=== PATIENT | female | born 1975 | race Two or more races ===

== ENCOUNTER 2020-02-26 06:31 | Outpatient (REF) | payer MEDICAID, SELFPAY | END 2020-02-26 06:32 | disposition home or self-care (01) | LOC: HO.LAB 06:31 | PROVIDERS: Visit Provider Internal Medicine | DX: Z20.828 Contact with and (suspected) exposure to other viral communicable diseases (principal) | CPT/HCPCS: 87635 ==

== ENCOUNTER 2020-04-12 07:01 | Outpatient (REF) | payer OTHER, SELFPAY ==
[2020-04-12 07:37] LABS: COVID-19 Test Negative (Negative); IDNOW Serial# 55D5AD1C
== END 2020-04-12 07:02 | disposition home or self-care (01) ==
LOC: HO.EMPCOV 07:01
PROVIDERS: Visit Provider Internal Medicine
DX: Z20.828 Contact with and (suspected) exposure to other viral communicable diseases (principal)
CPT/HCPCS: 87635; C9803